=== PATIENT | male | born 1965 | race American Indian/Alaskan Native ===

== ENCOUNTER 2016-11-18 01:29 | Inpatient (IN) | payer MEDICAID ==
[2016-11-18 01:57] VITALS: BMI 21.9
--- NOTE | 2016-11-18 02:13 | ED PDOC ---
Arrival/HPI - General Chief Complaint: Medical Clearance Time Seen by Provider: 11/18/16 02:09 - History of Present Illness Narrative History of Present Illness (Text): 11/18/16 02:09 Dinesh Camacho is a 51 year old male who presents to the Emergency department transferred from [facility] ([facility] for treatment of decompensated schizophrenia. Patient denies any fever, chills, chest pain, shortness of breath , nausea, vomiting, diarrhea, urinary symptoms, back pain, neck pain, headache, dizziness, or any other complaints. Patient states he feels fine currently. Time/Duration: Other (tonight) Symptom Onset: Gradual Symptom Course: Unchanged Activities at Onset: Light Context: Other (Transferred from [facility]) Past Medical History - Provider Review Nursing Documentation Reviewed: Yes - Psychiatric Hx Psychophysiologic Disorder: Yes Hx Schizophrenia: Yes Hx Substance Use: Yes (cocaine) Other/Comment: paranoia Family/Social History - Physician Review Nursing Documentation Reviewed: Yes Family/Social History: No Known Family HX Smoking Status: Light Smoker < 10 Cigarettes Daily Hx Alcohol Use: Yes Frequency of alcohol use: Daily Hx Substance Use: Yes (cocaine) Allergies/Home Meds Allergies/Adverse Reactions: Allergies Penicillins Allergy (Verified 11/18/16 04:24) ANAPHYLAXIS shellfish derived Allergy (Verified 11/18/16 04:24) ANAPHYLAXIS Home Medications: Home Meds Medication Instructions Recorded Confirmed Risperidone [Risperdal] 1 mg PO DAILY 11/18/16 11/18/16 Stribild Tablet 1 mg PO DAILY 11/18/16 11/18/16 Review of Systems - Physician Review All systems were reviewed & negative as marked: Yes - Review of Systems Constitutional: Normal. absent: Fevers Eyes: Normal ENT: Normal Respiratory: Normal. absent: SOB, Cough Cardiovascular: Normal. absent: Chest Pain Gastrointestinal: Normal. absent: Abdominal Pain, Diarrhea, Nausea, Vomiting Genitourinary Male: Normal. absent: Dysuria, Frequency, Hematuria, Urinary Output Changes Musculoskeletal: Normal. absent: Back Pain, Neck Pain Skin: Normal. absent: Rash Neurological: Normal. absent: Headache, Dizziness Endocrine: Normal Hemo/Lymphatic: Normal Physical Exam Vital Signs Reviewed: Yes Vital Signs Temp Pulse Resp BP Pulse Ox 11/18/16 01:35 97.9 F 59 L 17 146/47 L 97 Temperature: Afebrile Blood Pressure: Normal Pulse: Regular Respiratory Rate: Normal Appearance: Positive for: Well-Appearing, Non-Toxic, Comfortable Pain Distress: None Mental Status: Positive for: Alert and Oriented X 3 - Systems Exam Head: Present: Atraumatic, Normocephalic Pupils: Present: PERRL Extroacular Muscles: Present: EOMI Conjunctiva: Present: Normal Mouth: Present: Moist Mucous Membranes Neck: Present: Normal Range of Motion Respiratory/Chest: Present: Clear to Auscultation, Good Air Exchange. No: Respiratory Distress, Accessory Muscle Use Cardiovascular: Present: Regular Rate and Rhythm, Normal S1, S2. No: Murmurs Abdomen: Present: Normal Bowel Sounds. No: Tenderness, Distention, Peritoneal Signs Back: Present: Normal Inspection Upper Extremity: Present: Normal Inspection. No: Cyanosis, Edema Lower Extremity: Present: Normal Inspection. No: Edema Neurological: Present: GCS=15, CN II-XII Intact, Speech Normal Skin: Present: Warm, Dry, Normal Color. No: Rashes Psychiatric: Present: Alert, Oriented x 3, Normal Insight, Normal Concentration Medical Decision Making ED Course and Treatment: 11/18/16 02:09 Impression: 51 year old male transferred from [facility] for treatment of decompensated schizophrenia. Differential Diagnosis included but are not limited to: schizophrenia Plan: -- Admission to Behavioral Health Progress Notes: Pt was medically cleared and accepted for psychiatric admission at previous institution. Pt will be admitted to [facility] for decompensated schizophrenia under Dr. Pina's service. Pt agreeable with plan. - Medication Orders Current Medication Orders: Acetaminophen (Tylenol 325mg Tab) 650 mg PO Q6H PRN PRN Reason: Pain, Mild (1-3) Al Hydrox/Mg Hydrox/Simethicone (Maalox Plus 30 Ml) 30 ml PO DAILY PRN PRN Reason: Indigestion / Heartburn Famotidine (Pepcid) 40 mg PO HS JEAN CARLOS Folic Acid (Folic Acid) 1 mg PO DAILY [facility] Last Admin: 11/18/16 16:45 Dose: 1 mg Lorazepam (Ativan) 1 mg PO AMHS JEAN CARLOS PRN Reason: Protocol Last Admin: 11/18/16 11:09 Dose: Not Given Non-Admin Reason: Patient Refused Magnesium Hydroxide (Milk Of Magnesia) 30 ml PO DAILY PRN PRN Reason: Constipation Multivitamins/Minerals (Therapeutic-M Tab) 1 tab PO 0800 JEAN CARLOS (Stribild Tablet 1 (Mg) (Home Med)) 1 mg PO DAILY JEAN CARLOS Last Admin: 11/18/16 16:01 Dose: Quetiapine Fumarate (Seroquel Xr) 150 mg PO 1700 JEAN CARLOS PRN Reason: Protocol Last Admin: 11/18/16 16:45 Dose: 150 mg Re-Assess: Reassess Psych Meds Document 11/18/16 17:45 CV (Rec: 11/18/16 18:29 CV [id number]) Reassess Psych Med Effective Thiamine HCl (Vitamin B1 Tab) 100 mg PO DAILY JEAN CARLOS Last Admin: 11/18/16 16:45 Dose: 100 mg Zaleplon (Sonata) 10 mg PO HS PRN PRN Reason: Insomnia Last Admin: 11/18/16 03:54 Dose: 10 mg - Scribe Statement The provider has reviewed the documentation as recorded by the Janell Rodriguez Provider Scribe Attestation: All medical record entries made by the Scribaaron were at my direction and personally dictated by me. I have reviewed the chart and agree that the record accurately reflects my personal performance of the history, physical exam, medical decision making, and the department course for this patient. I have also personally directed, reviewed, and agree with the discharge instructions and disposition. Disposition/Present on Arrival - Present on Arrival Any Indicators Present on Arrival: No History of DVT/PE: No History of Uncontrolled Diabetes: No Urinary Catheter: No History of Decub. Ulcer: No History Surgical Site Infection Following: None - Disposition Have Diagnosis and Disposition been Completed?: Yes Diagnosis: Schizophrenia Disposition: HOSPITALIZED Disposition Time: 02:18 Patient Plan: Admission Patient Problems: Current Active Problems Problem Status Onset Cocaine abuse Acute Schizophrenia Acute Condition: STABLE
--- NOTE | 2016-11-18 05:31 | PCM.BM ---
<ShraddhaDar O - Last Filed: 11/18/16 05:29> Treatment Plan Problems - Problems identified on initial assessmt PARANOIA Date Initiated: 11/18/16 Time Initiated: 02:35 Assessment reference: NA Status: Active Priority: 1 NON COMPLIANCE WITH MEDICATION Date Initiated: 11/18/16 Time Initiated: 05:30 Assessment reference: NA Status: Active Priority: 2 Treatment assets and liabiliti Patient Assests: cooperative, ADL independent Patient Liabilities: substance abuse, legal issue - Milieu Protocol Maintain good personal hygiene: daily Encourage regular showers, daily Remind patient to perform daily oral care, daily Assist patient to perform ADL's Maintain personal safety: daily Educate patient to report safety concerns to staff, daily Monitor environment for contraband/sharps Medication safety: Monitor for expected outcome, potential side effects: daily, Assess barriers to learning: daily, Assess readiness for medication education: daily Family Contact Family contact: Patient agrees to contact Discharge/Continuing Care - Education Needs Education Needs: Patient Medication, Patient Diagnosis/Disease Process, Patient Coping Skills, Patient Anger Management skills, Patient Community resources, Patient Activities of Daily Living, Patient Health Practices/Safety - Discharge Discharge Criteria: Free of paranoid thoughts, Normal sleep pattern, Ability to care for self <Mary Kay Jimenez - Last Filed: 11/18/16 09:06> - Diagnosis (1) Cocaine abuse Status: Acute (2) Schizophrenia Status: Acute <Julieth Toth - Last Filed: 11/21/16 16:05> Family Contact Family contact: Patient agrees to contact Family contact name: Nissa Lester(sister) Family contacted how many times per week?: 2 - Goals for Treatment Patient goals for treatment: "I want to get into a rehab."
[2016-11-18 07:23] LABS: CHOLESTEROL 126 mg/dL (130-200)
[2016-11-18] MEDS ORDERED: Alum-Mag Hydrox-Simethicone Susp (30 mL) PO PRN (08:40)
[2016-11-18] MEDS ORDERED: Magnesium Hydroxide Susp 30 ml UD PO PRN (08:40)
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
--- NOTE | 2016-11-18 11:21 | CP.PCM.CON ---
History of Present Illness - History of Present Illness History of Present Illness: Hospitalist Note; routine medical evaluation. Patient seen and examined in psychiatric floor. Patient is alert, awake and oriented. Patient is a 51-year old -Martiniquais male with a history of schizoaffective disorder, cocaine and alcohol abuse, 40+ hospitalizations including [facility], most recently at [facility] [place] approximately 1 month ago, no current outpatient treatment who was transferred from [facility] in [place] to [facility] after presenting with paranoia. patient currently denies any homicidal/suicidal ideation. Denies any history of medical problems. Denies any fevers, chills. Denies any abdominal pain, nausea, vomiting.tolerating diet well. Denies any cough, Shortness of breath. denies any chest pain. Denies any urinary, Bowel symptoms. Patient is complaining of nonspecific lower extremity numbness for a few months. has varicose vein. Patient is ambulating fine. Past medical history; Schizoaffective disorder Cocaine abuse active smoking Alcohol abuse HIV/sexually acquired Neuropathy ? anemia Past surgical history; Laparotomy in . medications a home; stribild Risperidone/Seroquel Allergies; Penicillin exact allergy not known Selfish Social history; smokes half a pack to 1 pack per day Over 30 years Alcohol; social use. Last drink was 2 days ago. had 2 beers. Denies binge drinking smokes cocaine and marijuana denies IV drug abuse. Family history; Sister with uterine cancer aunt with colon patient lives in [place], [place]. Review of Systems - Constitutional Constitutional: absent: Chills - EENT Eyes: absent: Blurred Vision Nose/Mouth/Throat: absent: Nasal Congestion - Cardiovascular Cardiovascular: absent: Chest Pain, Leg Edema - Respiratory Respiratory: absent: Cough, Dyspnea, Dyspnea on Exertion - Gastrointestinal Gastrointestinal: absent: Abdominal Pain, Dysphagia, Nausea, Vomiting - Genitourinary Genitourinary: absent: Change in Urinary Stream - Musculoskeletal Musculoskeletal: Numbness. absent: Abnormal Gait - Neurological Neurological: absent: Abnormal Gait, Weakness - Psychiatric Psychiatric: Anxiety, Depression - Hematologic/Lymphatic Hematologic: absent: Easy Bleeding, Easy Bruising Past Patient History - Past Social History Smoking Status: Light Smoker < 10 Cigarettes Daily - CARDIAC Hx Mitral Valve Prolapse: No - PULMONARY Hx Respiratory Aspiration: No - NEUROLOGICAL Hx Migraine: No - HEENT Hx Difficulty Chewing: No - RENAL Hx Chronic Kidney Disease: No - ENDOCRINE/METABOLIC Hx Endocrine Disorders: No - HEMATOLOGICAL/ONCOLOGICAL Hx AIDS: Yes - INTEGUMENTARY Hx Dermatological Problems: No - MUSCULOSKELETAL/RHEUMATOLOGICAL Hx Musculoskeletal Disorders: No - GASTROINTESTINAL Hx Gastrointestinal Disorders: No - GENITOURINARY/GYNECOLOGICAL Hx Sexually Transmitted Disorders: Yes - PSYCHIATRIC Hx Anxiety: Yes Hx Depression: Yes Hx Schizophrenia: Yes Hx Substance Use: Yes - SURGICAL HISTORY Hx Surgeries: No - ANESTHESIA Has any member of the family had a problem w/ anesthesia?: No Meds Allergies/Adverse Reactions: Allergies Allergy/AdvReac Type Severity Reaction Status Date / Time Penicillins Allergy ANAPHYLAXIS Verified 11/18/16 04:24 shellfish derived Allergy ANAPHYLAXIS Verified 11/18/16 04:24 - Medications Medications: Current Medications Acetaminophen (Tylenol 325mg Tab) 650 mg PO Q6H PRN PRN Reason: Pain, Mild (1-3) Al Hydrox/Mg Hydrox/Simethicone (Maalox Plus 30 Ml) 30 ml PO DAILY PRN PRN Reason: Indigestion / Heartburn Lorazepam (Ativan) 1 mg PO AMHS [facility] PRN Reason: Protocol Magnesium Hydroxide (Milk Of Magnesia) 30 ml PO DAILY PRN PRN Reason: Constipation Multivitamins/Minerals (Therapeutic-M Tab) 1 tab PO 0800 [facility] Non-Formulary Medication (Stribild Tablet) 1 mg PO DAILY [facility] Quetiapine Fumarate (Seroquel Xr) 150 mg PO 1700 [facility] PRN Reason: Protocol Zaleplon (Sonata) 10 mg PO HS PRN PRN Reason: Insomnia Last Admin: 11/18/16 03:54 Dose: 10 mg Physical Exam - Constitutional Appears: Well, Non-toxic - Head Exam Head Exam: NORMAL INSPECTION - Eye Exam Eye Exam: Normal appearance - ENT Exam ENT Exam: Mucous Membranes Moist - Respiratory Exam Respiratory Exam: Clear to Auscultation Bilateral - Cardiovascular Exam Cardiovascular Exam: REGULAR RHYTHM - GI/Abdominal Exam GI & Abdominal Exam: Normal Bowel Sounds, Soft. absent: Rebound, Rigid, Tenderness Additional comments: vertical well healed laparotomy scar - Extremities Exam Extremities exam: Negative for: pedal edema Additional comments: varicose veins on both LE - Back Exam Back exam: absent: CVA tenderness (L), CVA tenderness (R) - Neurological Exam Neurological exam: Alert, Oriented x3 - Psychiatric Exam Psychiatric exam: Normal Affect - Skin Skin Exam: Normal Color Results - Vital Signs Recent Vital Signs: Last Vital Signs Temp 98.2 F 11/18/16 07:23 Pulse 61 11/18/16 07:23 Resp 20 11/18/16 07:23 BP 107/66 11/18/16 07:23 Pulse Ox 99 11/18/16 02:39 - Labs Labs: Laboratory Results - last 24 hr 11/18/16 11/18/16 07:07 07:07 Triglycerides 110 Cholesterol 126 L LDL Cholesterol Direct 73 HDL Cholesterol 44 TSH 3rd Generation 0.80 Assessment & Plan - Assessment and Plan (Free Text) Plan: 1.Patient is a 51-year-old male admitted with paranoia. Continue treatment per psychiatry. 2. Active smoking; smoking cessation is strongly advised. Patient refused NicoDerm patch. 3. Alcohol abuse; alcohol cessation is strongly advised.currently not in withdrawal. 4. Cocaine abuse; monitor for withdrawal symptoms. Continue Ativan. Drug abuse cessation is strongly advised. 5. Neuropathy; possibly related to HIV versus alcohol versus vitamin deficiency. Continue multivitamin. 6.HIV; as per patient he follows up with ID specialist at [facility]. the patient recent viral load was undetectable 3 months ago. Continues stribild. 7.GI prophylaxis with Pepcid. dietitian evaluation requested. Continue ensure. Labs reviewed. Patient has cocaine and marijuana positive in uine drug screen. CBC normal. CMP showed mild acidosis. Chest x-ray normal. patient is medically stable. Please follow up labs ordered today. Reconsult as needed. Thank you for the courtesy of this consultation.
[2016-11-18 11:42] LABS: HEMATOCRIT 44.3 % (42.0-52.0); MEAN CELL VOLUME 93.3 fl (80.0-105.0); MEAN CORPUSCULAR HGB CONC 34.3 g/dl (31.0-37.0); MEAN PLATELET VOLUME 8.4 fl (7.0-11.0); RED CELL DISTRIBUTION WIDTH 13.4 % (11.5-14.5); WHITE BLOOD COUNT 4.3 10^3/ul (4.5-11.0)
[2016-11-18 11:55] LABS: ALB/GLOB RATIO 1.2 (1.1-1.8); ALKALINE PHOSPHATASE 93 U/L (38-126); ALT/SGPT 39 U/L (7-56); AST/SGOT 37 U/L (17-59); BILIRUBIN,TOTAL 0.6 mg/dL (0.2-1.3); BLOOD UREA NITROGEN 15 mg/dL (7-21); CALCIUM 8.9 mg/dL (8.4-10.5); CARBON DIOXIDE 25 mmol/L (21-33); CHLORIDE 106 mmol/L (98-107); GFR AFRICAN-AMERICAN > 60; GLUCOSE,RANDOM 93 mg/dL (70-110); MAGNESIUM 1.8 mg/dL (1.7-2.2); POTASSIUM 4.3 mmol/L (3.6-5.0); SODIUM 137 mmol/L (132-148); TOTAL PROTEIN 6.4 g/dL (5.8-8.3)
[2016-11-18 16:12] LABS: FOLATE 5.8 ng/mL
[2016-11-18] MEDS ORDERED: QUEtiapine 150 mg XR Tab PO SCH (17:00)
[2016-11-19] MEDS: Multivitamin With Minerals Tab PO SCH ×2 (09:14→14:40)
--- NOTE | 2016-11-19 14:56 | PCM.PYCHPN ---
Psychiatric Progress Note - Psychiatric Progress Note Patient seen today, length of contact: 45 minutes Patient Chief Complaint: 'I'm not signing anything, not taking any medications, I want to be discharged" Problems Identified/Issues Discussed: Suicide/ homicide prevention, past psychiatric h/o, current psychiatric symptoms , medical problems, risk/benefits and alternatives of medications, medications compliance, coping strategies, substance abuse h/o, relapse prevention, importance of follow up with psychiatrist and therapist, discharge plan. Medical Problems: HIV Diagnostic Results: 11/18/16 11:10 11/18/16 11:10 Lab Results 11/18/16 11:10: Sodium 137, Potassium 4.3, Chloride 106, Carbon Dioxide 25, Anion Gap 10, BUN 15, Creatinine 1.0, Est GFR ( Amer) > 60, Est GFR (Non- Af Amer) > 60, Random Glucose 93, Calcium 8.9, Magnesium 1.8, Total Bilirubin 0.6, AST 37, ALT 39, Alkaline Phosphatase 93, Total Protein 6.4, Albumin 3.5, Globulin 2.9, Albumin/Globulin Ratio 1.2, Vitamin B12 268, Folate 5.8 11/18/16 11:10: WBC 4.3 L, RBC 4.75, Hgb 15.2, Hct 44.3, MCV 93.3, MCH 32.0, MCHC 34.3, RDW 13.4, Plt Count 210, MPV 8.4 11/18/16 07:07: TSH 3rd Generation 0.80 11/18/16 07:07: Hemoglobin A1c 5.3 11/18/16 07:07: Triglycerides 110, Cholesterol 126 L, LDL Cholesterol Direct 73 , HDL Cholesterol 44 Vital Signs Temp Pulse Resp BP Pulse Ox 11/19/16 07:32 97.8 F 65 20 11/18/16 16:37 71 106/65 11/18/16 07:23 98.2 F 61 20 107/66 11/18/16 04:49 16 11/18/16 04:29 16 11/18/16 02:39 16 99 11/18/16 01:35 97.9 F 59 L 17 146/47 L 97 DSM 5 Symptoms Update: as per evaluation: "Patient is a single 51-year-old -Iranian male with a history of schizoaffective disorder, cocaine and alcohol abuse, 40+ hospitalizations including [facility], most recently at [facility] approximately 1 month ago, no current outpatient treatment who was transferred from [facility] in [place] to [facility] after presenting with paranoia, disorganization and CAH to cut himself". pt was seen at tx team meeting, pt obviously suspicious and guarded, thought process is circumstantial and tangential. pt said that he was "overly sedated" on seroquel, refused to take any meds pt said that he wanted to be d/c and let staff know but "nobody educated me about 48hour notice", of note as per h/o pt has more than 40 admissions to the psyc unit under voluntary and involuntary and this show card writer is doubtful about pt' s unawareness of his rights. but this show card writer educated pt about 48 hr notice, pt was provided with the contact info of patient training representative/advocate. as per staff pt was not expressing any wish to be d/c yesterday. pt said that he was sober for years and he relapsed on the cocaine crack six weeks ago and pt said "I went to the hospital because I wanted to have rehab placement". pt said that he does not hear voices or seeing things, at the same time pt is paranoid, refused to sign tx plan, refused to correct the date on 48 hr notice pt dated it 12/19/16 (today is 11/19/16). as per RWJ report pt was paranoid that medical staff was taking pictures of pt. as per 's note pt was d/c from [facility] about a month ago on seroquel, but pt said that the only med help him was risperdal, willing to take it but pt was reluctant. pt has h/o HIV, was seen by medical team. pt said he was taking benadryl 100mg at hs. Impression: as per h/o schizoaffective disorder cocaine abuse r/o antisocial personality Medication Change: Yes (risperdal and benadryl ) Medical Record Reviewed: Yes Consults ordered or reviewed: medical consult was called, appreciated Mental Status Examination - Cognitive Function Orientation: Person Memory: Intact Attention: Poor Concentration: Poor Association: Loose Fund of Knowledge: Poor - Mood Mood: Depressed (irritable) - Affect Affect: Constricted - Formal Thought Process Formal Thought Process: Paranoia, Circumstantial - Suicidal Ideation Suicidal Ideation: No - Homicidal Ideation Homicidal Ideation: No Goal/Treatment Plan - Goal/Treatment Plan Need for Continued Stay: Remain at risks for inpatient hospitalization, Severe depression anxiety, Discharge may exacerbated symptoms, Failed transitioning, Severe functional impairment Progress Toward Problem(s) and Goals/Treatment Plan: milieu, structure, supportive therapy Seroquel will be discontinued because of excessive sedation Risperdal will be resumed 1 mg twice a day for psychotic symptoms Patient reported that she was taking Benadryl 100 mg at the nighttime for insomnia, 50 mg at the nighttime and as needed to another 50 mg Medical consultation appreciated Patient gave permission to speak to her sister, social media assistant will contact her Multivitamins thiamine and folic acid but patient refused to take it Patient submitted 48 hour notice today at the morning time we'll observe further most likely patient might benefit from further hospitalization will monitor closely Estimated Date of D/C: 11/23/16 (will monitor closely)
[2016-11-20] MEDS: Multivitamin With Minerals Tab PO SCH (09:21)
--- NOTE | 2016-11-20 13:25 | PCM.PYCHPN ---
Psychiatric Progress Note - Psychiatric Progress Note Patient seen today, length of contact: 30min Patient Chief Complaint: "I am willing to stay in the hospital" Problems Identified/Issues Discussed: Suicide/ homicide prevention, past psychiatric h/o, current psychiatric symptoms , medical problems, risk/benefits and alternatives of medications, medications compliance, coping strategies, substance abuse h/o, relapse prevention, importance of follow up with psychiatrist and therapist, discharge plan. Medical Problems: HIV Diagnostic Results: 11/18/16 11:10 11/18/16 11:10 Lab Results 11/18/16 11:10: Sodium 137, Potassium 4.3, Chloride 106, Carbon Dioxide 25, Anion Gap 10, BUN 15, Creatinine 1.0, Est GFR ( Amer) > 60, Est GFR (Non- Af Amer) > 60, Random Glucose 93, Calcium 8.9, Magnesium 1.8, Total Bilirubin 0.6, AST 37, ALT 39, Alkaline Phosphatase 93, Total Protein 6.4, Albumin 3.5, Globulin 2.9, Albumin/Globulin Ratio 1.2, Vitamin B12 268, Folate 5.8 11/18/16 11:10: WBC 4.3 L, RBC 4.75, Hgb 15.2, Hct 44.3, MCV 93.3, MCH 32.0, MCHC 34.3, RDW 13.4, Plt Count 210, MPV 8.4 11/18/16 07:07: TSH 3rd Generation 0.80 11/18/16 07:07: Hemoglobin A1c 5.3 11/18/16 07:07: Triglycerides 110, Cholesterol 126 L, LDL Cholesterol Direct 73 , HDL Cholesterol 44 Vital Signs Temp Pulse Resp BP Pulse Ox 11/19/16 07:32 97.8 F 65 20 11/18/16 16:37 71 106/65 11/18/16 07:23 98.2 F 61 20 107/66 11/18/16 04:49 16 11/18/16 04:29 16 11/18/16 02:39 16 99 11/18/16 01:35 97.9 F 59 L 17 146/47 L 97 Temp Pulse Resp BP Pulse Ox 97.8 F 80 20 100/64 99 11/19/16 07:32 11/19/16 16:36 11/19/16 07:32 11/19/16 16:36 11/18/16 02:39 DSM 5 Symptoms Update: "Patient is a single 51-year-old -Luxembourger male with a history of schizoaffective disorder, cocaine and alcohol abuse, 40+ hospitalizations including [facility], most recently at [facility] approximately 1 month ago, no current outpatient treatment who was transferred from [facility] to [facility] after presenting with paranoia, disorganization and CAH to cut himself". pt was seen at the TV area, pt obviously suspicious and guarded, thought process is circumstantial and tangential but with some improvements, pt is more pleasant. pt submitted 48hr notice yesterday. collaterals from pt's sister by SW, pt was guarded, paranoid, had impression that people after him, pt also had impression that somebody was taking of pt's pictures without his consent. see MIRNA notes for more detailed info. pt said that he does not feel that staff of [facility] is taking any pictures while pt is in the psych unit, but in the [facility] "it was obvious that they were taking my pictures". pt was educated about tx plan, this remote mortgage underwriter also educated pt that he might benefit from staying in the hospital longer, pt was in agreement to rescind 48 notice, willing this remote mortgage underwriter to increase Risperdal. pt tolerates meds well, no side effects observed or reported, AIMS 0, no EPS. pt requested to have a Mental Health Advocate (MHA) yesterday, when was approached by [facility] today, PT does not want to have MHA and stated he spoke to someone from [employer] and all issues resolved. Impression: as per h/o schizoaffective disorder cocaine abuse r/o antisocial personality Medication Change: Yes (ripserdal incrased) Medical Record Reviewed: Yes Consults ordered or reviewed: medical consult was called, appreciated Mental Status Examination - Cognitive Function Orientation: Person Memory: Intact Attention: Poor Concentration: Poor Association: Loose Fund of Knowledge: Poor - Mood Mood: Depressed (less irritable) - Affect Affect: Constricted (but more reactive today) - Formal Thought Process Formal Thought Process: Paranoia, Circumstantial (somewhat better) - Suicidal Ideation Suicidal Ideation: No - Homicidal Ideation Homicidal Ideation: No Goal/Treatment Plan - Goal/Treatment Plan Need for Continued Stay: Remain at risks for inpatient hospitalization, Severe depression anxiety, Discharge may exacerbated symptoms, Failed transitioning, Severe functional impairment Progress Toward Problem(s) and Goals/Treatment Plan: milieu, structure, supportive therapy Risperdal will be increased 1 mg am and 2mg hs for psychotic symptoms Patient reported that she was taking Benadryl 100 mg at the nighttime for insomnia, 50 mg at the nighttime and as needed to another 50 mg Medical consultation appreciated Patient gave permission to speak to his sister, collaterals appreciated Multivitamins thiamine and folic acid but patient refused to take it Patient rescinded 48 hr notice, willing to stay and complete tx SW evaluation for possible rehab Estimated Date of D/C: 11/23/16 (will monitor closely)
[2016-11-21] MEDS: Multivitamin With Minerals Tab PO SCH (08:00)
--- NOTE | 2016-11-21 16:09 | PCM.PYCHPN ---
Psychiatric Progress Note - Psychiatric Progress Note Patient seen today, length of contact: 30min Patient Chief Complaint: "I am feeling much better" Problems Identified/Issues Discussed: Suicide/ homicide prevention, past psychiatric h/o, current psychiatric symptoms , medical problems, risk/benefits and alternatives of medications, medications compliance, coping strategies, substance abuse h/o, relapse prevention, importance of follow up with psychiatrist and therapist, discharge plan. Medical Problems: HIV Diagnostic Results: 11/18/16 11:10 11/18/16 11:10 Lab Results 11/18/16 11:10: Sodium 137, Potassium 4.3, Chloride 106, Carbon Dioxide 25, Anion Gap 10, BUN 15, Creatinine 1.0, Est GFR ( Amer) > 60, Est GFR (Non- Af Amer) > 60, Random Glucose 93, Calcium 8.9, Magnesium 1.8, Total Bilirubin 0.6, AST 37, ALT 39, Alkaline Phosphatase 93, Total Protein 6.4, Albumin 3.5, Globulin 2.9, Albumin/Globulin Ratio 1.2, Vitamin B12 268, Folate 5.8 11/18/16 11:10: WBC 4.3 L, RBC 4.75, Hgb 15.2, Hct 44.3, MCV 93.3, MCH 32.0, MCHC 34.3, RDW 13.4, Plt Count 210, MPV 8.4 11/18/16 07:07: TSH 3rd Generation 0.80 11/18/16 07:07: Hemoglobin A1c 5.3 11/18/16 07:07: Triglycerides 110, Cholesterol 126 L, LDL Cholesterol Direct 73 , HDL Cholesterol 44 Vital Signs Temp Pulse Resp BP Pulse Ox 11/19/16 07:32 97.8 F 65 20 11/18/16 16:37 71 106/65 11/18/16 07:23 98.2 F 61 20 107/66 11/18/16 04:49 16 11/18/16 04:29 16 11/18/16 02:39 16 99 11/18/16 01:35 97.9 F 59 L 17 146/47 L 97 Temp Pulse Resp BP Pulse Ox 97.8 F 80 20 100/64 99 11/19/16 07:32 11/19/16 16:36 11/19/16 07:32 11/19/16 16:36 11/18/16 02:39 DSM 5 Symptoms Update: Patient is a single 51-year-old -Congolese male with a history of schizoaffective disorder, cocaine and alcohol abuse, 40+ hospitalizations including [facility], most recently at [facility] approximately 1 month ago, no current outpatient treatment who was transferred from [facility] in [place] to [facility] [place] after presenting with paranoia, disorganization and CAH to cut himself. pt was seen in his room, pt obviously has improvement with presentation, pleasant, cooperative, socially appropriate. affect is brighter, pt said he feels "much better". paranoia better, denied voices, at the same time as per sister still feels that people are after him. pt seems to be proactive as well, was calling to the rehab places. pt tolerates meds well, no side effects observed or reported, AIMS 0, no EPS. Impression: as per h/o schizoaffective disorder cocaine abuse r/o antisocial personality Medication Change: No (ripserdal incrased yesterday) Medical Record Reviewed: Yes Consults ordered or reviewed: medical consult was called, appreciated Mental Status Examination - Cognitive Function Orientation: Person Memory: Intact Attention: Poor (some improvement) Concentration: Poor (some improvement) Association: Loose (some improvement) Fund of Knowledge: Poor (some improvement) - Mood Mood: Depressed (less irritable) - Affect Affect: Constricted (but more reactive today) - Formal Thought Process Formal Thought Process: Paranoia (better), Circumstantial (somewhat better) - Suicidal Ideation Suicidal Ideation: No - Homicidal Ideation Homicidal Ideation: No Goal/Treatment Plan - Goal/Treatment Plan Need for Continued Stay: Remain at risks for inpatient hospitalization, Severe depression anxiety, Discharge may exacerbated symptoms, Failed transitioning, Severe functional impairment Progress Toward Problem(s) and Goals/Treatment Plan: milieu, structure, supportive therapy Risperdal 1 mg am and 2mg hs for psychotic symptoms Patient reported that she was taking Benadryl 100 mg at the nighttime for insomnia, 50 mg at the nighttime and as needed to another 50 mg Medical consultation appreciated Patient gave permission to speak to his sister, collaterals appreciated Multivitamins thiamine and folic acid but patient refused to take it SW evaluation for possible rehab Estimated Date of D/C: 11/23/16 (will monitor closely)
[2016-11-22 06:42] VITALS: BP 142/88; PULSE 63; RESP 18; TEMP 98.3; O2SAT 97
[2016-11-22] MEDS: Multivitamin With Minerals Tab PO SCH (09:23)
--- NOTE | 2016-11-22 16:14 | PCM.PYCHDC ---
Mental Status Examination - Mental Status Examination Orientation: Person, Place, Situation, Time Memory: Intact Mood: Neutral Affect: Broad (reactive mood congruent) Speech: Appropriate Attention: WNL Concentration: WNL Association: WNL Fund of Knowledge: WNL Formal Thought Process: No Impairment Description of patient's judgement and insight: Pt has improved insight into mental and medical illness, pt was compliant with medications and unit rules and regulations, pt was going to groups, was calm, cooperative, socially appropriate, no behavioral incidents, no agitation, no aggression. Psychotic Thoughts and Behaviors: Pt denied v/a/t hallucinations, denied paranoid ideations, pt does not appear to be psychotic, and thought process is goal directed. Suicidal Ideation: No Current Homicidal Ideation?: No Plan: pt adamantly denied thoughts of harming self or others denied intent or plan. Discharge Summary - Discharge Note Reason for Hospitalization: patient was transferred from another hospital for evaluation of paranoia, disorganized behavior, please see initial note for more detailed information. Psychiatric History (includes Medical, Family, Personal Hx): long history of schizoaffective disorder Laboratory Data: 11/18/16 11:10 11/18/16 11:10 Lab Results 11/18/16 11:10: Sodium 137, Potassium 4.3, Chloride 106, Carbon Dioxide 25, Anion Gap 10, BUN 15, Creatinine 1.0, Est GFR ( Amer) > 60, Est GFR (Non- Af Amer) > 60, Random Glucose 93, Calcium 8.9, Magnesium 1.8, Total Bilirubin 0.6, AST 37, ALT 39, Alkaline Phosphatase 93, Total Protein 6.4, Albumin 3.5, Globulin 2.9, Albumin/Globulin Ratio 1.2, Vitamin B12 268, Folate 5.8 11/18/16 11:10: WBC 4.3 L, RBC 4.75, Hgb 15.2, Hct 44.3, MCV 93.3, MCH 32.0, MCHC 34.3, RDW 13.4, Plt Count 210, MPV 8.4 11/18/16 07:07: TSH 3rd Generation 0.80 11/18/16 07:07: Hemoglobin A1c 5.3 11/18/16 07:07: Triglycerides 110, Cholesterol 126 L, LDL Cholesterol Direct 73 , HDL Cholesterol 44 Vital Signs Temp Pulse Resp BP Pulse Ox 11/22/16 06:40 98.3 F 63 18 142/88 97 11/21/16 16:13 67 106/61 11/21/16 07:23 98.4 F 57 L 20 105/71 11/19/16 16:36 80 100/64 11/19/16 07:32 97.8 F 65 20 11/18/16 16:37 71 106/65 11/18/16 07:23 98.2 F 61 20 107/66 11/18/16 04:49 16 11/18/16 04:29 16 11/18/16 02:39 16 99 11/18/16 01:35 97.9 F 59 L 17 146/47 L 97 Consultations:: List each consultation separately and include: 1. Reason for request. 2. Findings. 3. Follow-up Consultations: medical consult was called, appreciated see notes for more detailed information Patient was on HIV medication which is nonformulary in the hospital Summary of Hospital Course include:: 1. Description of specific treatment plan utilized for patients during their course of treatmen. 2. Summarize the time- course for resolution of acute symptoms and/or regressed behaviors. 3. Describe issues identified and worked on during hospitalization. 4. Describe medication utilized. 5. Describe medical problems identified and treated. 6. Reassessment of suicide risk Summary of Hospital Course: Patient is a single 51-year-old -Singaporean male with a history of schizoaffective disorder, cocaine and alcohol abuse, 40+ hospitalizations including [facility], most recently at [facility] approximately 1 month ago, no current outpatient treatment who was transferred from [facility] [place] in [place] to [facility] after presenting with paranoia, disorganization and CAH to cut himself. initially pt was seen at tx team meeting, pt obviously suspicious and guarded, thought process is circumstantial and tangential. pt said that he was "overly sedated" on seroquel, refused to take any meds pt said that he wanted to be d/c and let staff know but "nobody educated me about 48hour notice", of note as per h/o pt has more than 40 admissions to the psyc unit under voluntary and involuntary and this consumer loan underwriter is doubtful about pt' s unawareness of his rights. but this consumer loan underwriter educated pt about 48 hr notice, pt was provided with the contact info of patient guest services representative/advocate. as per staff pt was not expressing any wish to be d/c the day of admission. pt said that he was sober for years and he relapsed on the cocaine crack six weeks ago and pt said "I went to the hospital because I wanted to have rehab placement". pt said that he does not hear voices or seeing things, at the same time pt is paranoid, refused to sign tx plan, refused to correct the date on 48 hr notice pt dated it 12/19/16 (today is 11/19/16). as per RWJ report pt was paranoid that medical staff was taking pictures of pt. as per 's note pt was d/c from [facility] about a month ago on seroquel, but pt said that the only med help him was risperdal, willing to take it but pt was reluctant. pt has h/o HIV, was seen by medical team. pt said he was taking benadryl 100mg at hs. over the course of this hospitalization patient was resumed on Risperdal which was titrated to 3 mg at the for psychosis Patient was also started on Benadryl 100 mg at the nighttime as per patient she was taking medication at home. Patient tolerated medications well, no side effects observed or reported, aims 0 , no EPS. Over the course of this hospitalization pt was attending groups, pt also had medication management, had therapeutic milieu. Overall pt improved significantly, pt's affect became brighter, pt was less depressed, has realistic future oriented plans "I want to stay sober, want to go to rehab", pt also does not appear to be psychotic, or anxious, pt was socially appropriate, no behavioral issues, pts insight improved as well and soon pt deemed to be ready for discharge. At the time of the discharge pt denied been depressed, denied thoughts of harming self or others, denied psychotic symptoms, and pt does not appeared to be psychotic, denied been anxious, pt is not in imminent danger to self or others, will be following up with outpatient psychiatrist, information about follow up appointment, time and address provided to the pt, it is patient responsibility to follow up with outpatient clinic, PMD as well as specialists ( see SW note for more detailed information). In case pt will need to obtain results of studies pending at discharge pt was provided with contact information of Psychiatric Inpatient unit [phone] as well as Medical Record Department [phone]. Counseling about smoking and alcohol cessation provided pt was provided with prescriptions for all of medications (please see medication reconciliation form) Pt was educated about safety plan in case of worsening of symptoms or in case of suicidal or homicidal ideation call 911 or go to the nearest ER, also was educated to take meds as prescribed and stay away from drugs, pt verbalized understanding. - Diagnosis (1) Schizoaffective disorder Status: Chronic Priority: Medium (2) Cocaine abuse Status: Chronic Priority: Medium - Final Diagnosis (DSM 5) Condition upon Discharge: STABLE Disposition: HOME/ ROUTINE Follow-up Treatment Plan: At the time of the discharge pt denied been depressed, denied thoughts of harming self or others, denied psychotic symptoms, and pt does not appeared to be psychotic, denied been anxious, pt is not in imminent danger to self or others, will be following up with outpatient psychiatrist, information about follow up appointment, time and address provided to the pt, it is patient responsibility to follow up with outpatient clinic, PMD as well as specialists ( see SW note for more detailed information). In case pt will need to obtain results of studies pending at discharge pt was provided with contact information of Psychiatric Inpatient unit [phone] as well as Medical Record Department [phone]. Counseling about smoking and alcohol cessation provided pt was provided with prescriptions for all of medications (please see medication reconciliation form) Pt was educated about safety plan in case of worsening of symptoms or in case of suicidal or homicidal ideation call 911 or go to the nearest ER, also was educated to take meds as prescribed and stay away from drugs, pt verbalized understanding. Prescriptions/Medication Reconciliation: RX: DiphenhydrAMINE [Benadryl] 50 mg PO HS #14 cap RX: Famotidine [Pepcid] 40 mg PO HS #7 tab RX: Folic Acid 1 mg PO DAILY #14 tab RX: Multimineral/Multivitamin [Therapeutic-M Tab] 1 tab PO 0800 #14 tab RX: risperiDONE [RisperDAL Tab] 1 mg PO DAILY #14 tab RX: risperiDONE [RisperDAL Tab] 2 mg PO HS #14 tab - Smoking Cessation Smoking Cessation Medication prescribed: No Reason for not providing: denied smoking - Antipsychotic Medications Pt discharged on 2 or more routine antipsychotic medications: No
== END 2016-11-22 15:47 | disposition home or self-care (01) | DRG 430 ==
LOC: ED 01:29 → ERH 02:19 → PSYC 02:44
PROVIDERS: ADMIT Psychiatry & Neurology Psychiatry; ATTEND Psychiatry & Neurology Psychiatry
PROC: GZ3ZZZZ Medication Management (ICD-10-PCS; principal; 2016-11-18)
DX: F25.9 Schizoaffective disorder, unspecified (principal); F14.10 Cocaine abuse, uncomplicated; F22 Delusional disorders; Z21 Asymptomatic human immunodeficiency virus [HIV] infection status; F10.10 Alcohol abuse, uncomplicated; F12.90 Cannabis use, unspecified, uncomplicated; G62.9 Polyneuropathy, unspecified; G47.00 Insomnia, unspecified; I83.90 Asymptomatic varicose veins of unspecified lower extremity; F17.210 Nicotine dependence, cigarettes, uncomplicated; Z91.14 Patient's other noncompliance with medication regimen; Z91.5 Personal history of self-harm